=== PATIENT | female | born 1995 | race Caucasian/White ===

== ENCOUNTER 2018-12-27 17:24 | Inpatient (IN) | payer MEDICAID ==
[~2018-12-27] VITALS: Ht 149.9 cm; Wt 78.0 kg
[2018-12-27 18:50] VITALS: BP 135/85; PULSE 85; RESP 16
[2018-12-27] MEDS ORDERED: HYDR50TA15 PO (18:54)
[2018-12-27] MEDS ORDERED: PREN-19 PO (18:54)
[2018-12-27] MEDS ORDERED: ACETAMINOPHEN 325 MG TAB PO PRN (22:00)
[2018-12-27] MEDS ORDERED: AL HYDROX/MG HYDROX/SIMETH 30 ML CUP PO PRN (22:00)
[2018-12-27] MEDS: URSODIOL 300 MG CAP PO SCH (22:49)
[2018-12-27] MEDS: NACL 0.9% 3 ML SYG IV SCH (23:05)
--- NOTE | 2018-12-27 23:11 | TRIAGE ---
OB Triage Datetime Report Generated by CPN: 12/27/2018 23:11 Datetime: 12/27/2018 22:42 Time of Arrival: 12/27/2018 21:30 EGA: 35.4 Arrived By: Ambulatory Arrived From: Home Chief Complaint: c/o itching x 3 wks and numbness in hands Movement: Present Contractions: Denies/Absent Rupture of Membranes: Denies Vaginal Bleeding: None Vaginal Discharge: Denies Recent Sexual Intercouse: Denies Abdominal Trauma: Not Applicable Patient Complaints: Upper Extremity Edema Time Provider Notified: 12/27/2018 19:10 Provider Notified: Dr Cabrera Initial Plan: EFM,CBC,CMP,UA,URINE CULTURE,EFW,BPP,URIC ACID,BILE ACIDS Datetime: 12/27/2018 22:17 Vaginal Exam Membrane Status: Intact
--- NOTE | 2018-12-28 00:04 | HP ---
Date/Time of Note Date/Time of Note DATE: 12/27/18 TIME: 23:34 OB - History Hx of Present Free Text/Dictation 23 y.o primigravida here at 35w4d with c/o generalized itching sensation and numbness of hands for 3weeks. initial BP was 135/85 ,high BP in multiple occasions range 140-160/90-104 LFT sl ightly elevated AST 56 ALT 96 Bile acid has been drawn most likely of which result is pending,she has been on hydroxysine only she also c/o generalized edema with numbness on both hands EFM CAT I tracing no uterine activities spot urine protein neg admit her ofr observation for high blood pressure ,place on her ursordiol for poss cholestasis in the mean time and have perinatalogist see her in am with repeat lab in am. Chief Complaint: whole body itching with generalized edema Estimated Due Date: Jan 27, 2019 : 1 Para: 0 Spontaneous : 0 Therapeutic : 0 Care: Other Ultrasounds: Other Obstetrical Complications: None Medical Complications: None Past Family/Social History * Past Medical, Surgical, Family and Obstetric Histories reviewed from chart. Blood Type: Unknown Rubella: unknown RPR/VDRL: Unknown GBS Status: Unknown HBsAG: Unknown OB Admission Exam Vital Signs Vital Signs Vital Signs Date Temp Pulse Resp B/P (MAP) Pulse Ox O2 O2 Flow FiO2 Time Delivery Rate 12/27/18 98.2 85 16 135/85 Room Air 18:50 (102) Physical Exam HEENT: WNL Heart: Rhythm Normal Lungs: Clear, Equal Abdomen: WNL Extremities: Edema (+/+) Reflexes: Normal Cervical Dilatation: other Effacement: Other Station: Other Membranes: Intact Amniotic Fluid: Unevaluable Heart Rate: 130's Accelerations: Accelerations Present Decelerations: No Decelerations Varibility: Moderate Contractions on Admission: None Last 72 hours Lab Results CBC & BMP 12/27/18 19:56 Liver Function Test 12/27/18 19:56 Alanine Aminotransferase (ALT/SGPT) 96 H Albumin 3.2 L Alkaline Phosphatase 440 H Aspartate Amino Transf (AST/SGOT) 53 H Direct Bilirubin 0.00 Total Protein 6.9 OB Assessment/Plan Other Assessment: A IUP 35w4d R/O cholestasis PIH P admit to antepartum for observation and perinatalogy consultation Rx ursodiol repeat PIH lab 24hr urine collection forprotein and cr cl MICKEY FLORES MD Dec 27, 2018 23:56
[2018-12-28] MEDS: URSODIOL 300 MG CAP PO SCH ×3 (09:28→21:07)
[2018-12-28] MEDS: PRENATAL VITAMIN PO SCH (09:28)
[2018-12-28] MEDS ORDERED: DIPHENHYDRAMINE 50 MG INJ IM PRN ×2 (14:30)
[2018-12-28] MEDS: NACL 0.9% 3 ML SYG IV SCH (16:46)
[2018-12-28] MEDS: DEXAMETHASONE 4 MG/ML 5 ML INJ IM SCH (16:48)
[2018-12-28] MEDS: DIPHENHYDRAMINE 50 MG INJ IV PRN (19:39)
--- NOTE | 2018-12-29 03:38 | CONS ---
DATE OF ADMISSION: 12/27/2018 DATE OF CONSULTATION: 12/28/2018 HISTORY OF PRESENT ILLNESS: The patient is a primigravida at 35 weeks and 5 days, presented with com plaint of itching. She was found to have also elevated blood pressures. Her AST and ALT are elevate d, both less than 100. Creatinine is 0.6. Platelet is normal. A 24-hour urine for protein is pendi ng. She has been experiencing itching for a month, but she had not been placed on Actigall. Current ly, she is placed on Actigall 3 times a day. Primigravida. REVIEW OF SYSTEMS: Except for what is mentioned above is negative. Vital signs currently is 137/82 blood pressure. PHYSICAL EXAMINATION: Deferred. heart tones reassuring. Contractions occasionally. Labs as above. IMPRESSION: Intrauterine at 35 weeks and 5 days with cholestasis, currently on Actigall 3 times a day, also placed on Benadryl p.r.n. for itching. Elevated blood pressures in the normal to moderate range. No symptoms. Liver functions are elevated . It could be secondary to the blood pressure or cholestasis. A 24-hour urine for protein is pending. RECOMMENDATIONS: Dexamethasone as she is less than 36 weeks. Continuous heart tone monitoring. Delivery at 37 weeks unless. She is diagnosed with severe preeclampsia based on blood pressures, 24- hour urine for protein, elevated creatinine or nonreassuring heart tone or GI symptoms, neurolo gic symptoms, respiratory problems and vision. Please do note that nonreassuring heart does not make the severe preeclampsia, but it would req uire delivery. Recheck the liver enzymes again tomorrow if they are more elevated, then I do recommend delivery at 3 6 weeks. NICU consult just in case. In-house management until delivery. Dictated By: SAMIR VALADEZ MD ST/NTS Conf#: [id number] DID#: [id number] CC: ZAHIRA YIN MD;*EndCC*
[2018-12-29] MEDS: DEXAMETHASONE 4 MG/ML 5 ML INJ IM SCH ×2 (05:42→18:37)
[2018-12-29] MEDS: URSODIOL 300 MG CAP PO SCH ×3 (10:40→21:07)
[2018-12-29] MEDS: PRENATAL VITAMIN PO SCH (10:40)
[2018-12-30] MEDS: NACL 0.9% 3 ML SYG IV SCH ×3 (06:46→20:16)
[2018-12-30] MEDS: DEXAMETHASONE 4 MG/ML 5 ML INJ IM SCH (06:48)
[2018-12-30] MEDS: PRENATAL VITAMIN PO SCH (09:15)
--- NOTE | 2018-12-30 09:28 | PREOPHP ---
DATE OF ADMISSION: 12/27/2018 HISTORY OF PRESENT ILLNESS: This is a 23-year-old lady, 1. Her EDC by early ultrasound is 0 01/27/2019, that makes her 35 and 4/7 weeks, admitted to labor and delivery for observation. The jimmy ent had been having itching for the last many days and getting worse up to the time of admission. Agnes allison had gone to [facility] for this problem as well. She came today on 12/27/2018 for observa tion. PAST PERSONAL HISTORY: No history of TB, asthma. ALLERGIES: NO ALLERGIES. SOCIAL HISTORY: Patient does not smoke. She does not drink. MEDICATIONS: She does not take any drugs except her iron and vitamins. She was given Actigall 300 m g p.o. 3 times a day before. GYNECOLOGIC HISTORY: She had menarche at the age of 11, every 28 days interval, 3 to 4 days duration , and moderate in amount. FAMILY HISTORY: Noncontributory. She is 1, para 0. REVIEW OF SYSTEMS: CARDIOVASCULAR: No chest pains. RESPIRATORY: No cough. GASTROINTESTINAL: No diarrhea, no vomiting. GENITOURINARY: No dysuria. PHYSICAL EXAMINATION: GENERAL: Reveals a conscious, coherent lady and in no acute distress. VITAL SIGNS: Her blood pressure 120/80, pulse rate 80 per minute, respirations 16 per minute. BREASTS, HEART AND LUNGS: Within normal limits. ABDOMEN: Soft, no tenderness noted. Fundic height 34 cm. heart tones 140 per minute. PELVIC: On admission revealed the cervix to be closed. EXTREMITIES: No pedal edema. Deep tendon reflexes were normal. ADMITTING DIAGNOSES: A 35 and 4/7 weeks intrauterine , rule out cholestasis of . Patient had an OB ultrasound and abdominal ultrasound. She had all the liver function tests done CBC , CMP. The plans were explained to the patient. When I was informed by the nurse about admission, t he patient was admitted in the afternoon on 12/27/2018. She was admitted under another doctor, Dr. Hyun benavidez, and I was informed about this patient at 4 o'clock in the afternoon that this patient is adm itted and she is my patient. So she was transferred to my care. The patient was planned to be obser tawana in the hospital and to be continued on Actigall and Benadryl if needed. The plans were explained to the patient. She understood everything totally. The risks, benefits, and alternatives were disc ussed with her as well. Dictated By: ZAHIRA YIN MD NS/JAVIER Conf#: [id number] DID#: [id number] CC: ZAHIRA YIN MD;*EndCC*
--- NOTE | 2018-12-30 09:33 | PN ---
DATE: 12/28/2018 TIME: 1:00 p.m. SUBJECTIVE: The patient still feels itching, but less with the Benadryl and Dr. Russell was consulted about this patient. She had all the lab tests reviewed and that she had elevated SGOT and SGPT, but the platelets were normal. OBJECTIVE: VITAL SIGNS: She is afebrile. Vital signs stable. No vaginal bleeding noted. EXTREMITIES: There is no calf tenderness. PLAN: NURA was 10. She was planned to be observed and have a repeat CBC and CMP the following day. The plans were explained to the patient. She understood everything totally. Dictated By: AZHIRA YIN MD NS/NTS Conf#: [id number] DID#: [id number] CC: ZAHIRA YIN MD;*EndCC* MTDD
--- NOTE | 2018-12-30 09:38 | PN ---
DATE: 12/29/2018 TIME: 8:30 p.m. SUBJECTIVE: The patient feels good. She still with itching, but a lot better. No vaginal bleeding, no discharge. OBJECTIVE: VITAL SIGNS: She is afebrile. Vital signs stable. ABDOMEN: Soft, no tenderness noted. I did a pelvic exam and the pelvic exam revealed the cervix to be closed. No watery discharge, no bleeding noted. EXTREMITIES: No calf tenderness. ASSESSMENT: A 35 and 6/7 weeks intrauterine with possible cholestasis of . The p atient will be kept until tomorrow. She will be 36 weeks tomorrow and then she will have a repeat CB C, CMP, plus the cervical length and NURA tomorrow. This is the plans that were explained to the jimmy ent and she understood everything totally. Dictated By: ZAHIRA YIN MD NS/NTS Conf#: [id number] DID#: [id number] CC: ZAHIRA YIN MD;*EndCC*
[2018-12-30] MEDS: URSODIOL 300 MG CAP PO SCH ×3 (11:00→21:08)
[2018-12-31] MEDS: NACL 0.9% 3 ML SYG IV SCH ×3 (08:11→16:55)
[2018-12-31] MEDS: PRENATAL VITAMIN PO SCH (10:10)
[2018-12-31] MEDS: URSODIOL 300 MG CAP PO SCH ×3 (10:10→21:28)
--- NOTE | 2018-12-31 22:55 | PN ---
DATE: 12/30/2018 SUBJECTIVE: The patient feels good, still with itching but less, no contractions. OBJECTIVE VITAL SIGNS: She is afebrile. Vital signs stable. ABDOMEN: Soft, no tenderness noted. heart tones normal. No vaginal bleeding noted. No water y discharge. ASSESSMENT: A 35 and 5/7 weeks intrauterine with cholestasis of . PLAN: Repeat her CMP and CBC tomorrow and to reconsult Dr. Russell tomorrow, Monday. Dictated By: ZAHIRA ESCOBAR/NTS Conf#: [id number] DID#: [id number]
[2018-12-31] MEDS: DIPHENHYDRAMINE 50 MG INJ IV PRN (23:06)
--- NOTE | 2018-12-31 23:06 | PN ---
DATE: 12/31/2018 TIME: 1:00 P.M. SUBJECTIVE: The patient is not having any contractions and less itching. CBC is stable. hear t tones are normal and that her liver function tests are better today comparing it from yesterday. Latanya Russell, her reimbursement coordinator, will be reconsulted. OBJECTIVE: VITAL SIGNS: She is afebrile. Vital signs stable. ABDOMEN: Soft. heart tones normal. No vaginal bleeding noted. EXTREMITIES: No calf tenderness. ASSESSMENT: Thirty-six weeks intrauterine with cholestasis of . PLAN: Repeat her liver function tests tomorrow. Dictated By: ZAHIRA YIN MD NS/NTS Conf#: [id number] DID#: [id number] CC: ZAHIRA YIN MD;*EndCC*
[2019-01-01] MEDS: URSODIOL 300 MG CAP PO SCH (09:47)
[2019-01-01] MEDS: PRENATAL VITAMIN PO SCH (09:49)
[2019-01-01] MEDS ORDERED: OXYTOCIN 30 UNITS/LR 500 ML IV SCH ×6 (10:00→16:22)
[2019-01-01] MEDS ORDERED: LIDOCAINE 1% (MPF) 30 ML INJ INJ PRN (10:00)
[2019-01-01] MEDS ORDERED: MISOPROSTOL 50 MCG CAPSULE VAG ONE (10:00)
[2019-01-01] MEDS ORDERED: CARBOPROST 250 MCG INJ IM PRN ×2 (10:00→16:30)
[2019-01-01] MEDS ORDERED: BUTORPHANOL 2 MG INJ IV PRN ×2 (10:00→12:00)
[2019-01-01] MEDS ORDERED: OXYTOCIN 30 UNITS/LR 500 ML IV PRN ×2 (10:00→16:30)
[2019-01-01] MEDS ORDERED: METHYLERGONOVINE 0.2 MG INJ IM PRN ×2 (10:00→16:30)
[2019-01-01] MEDS ORDERED: MISOPROSTOL 200 MCG TAB PR PRN ×2 (10:00→16:30)
[2019-01-01] MEDS ORDERED: AMPICILLIN 2 GM/NS (PMX) 100 ML IVPB ONE (10:30)
[2019-01-01] MEDS: LACTATED RINGER'S 1,000 ML IV SCH ×2 (10:44→13:27)
--- NOTE | 2019-01-01 12:59 | PREAC ---
Date/Time of Note Date/Time of Note DATE: 01/01/19 TIME: 12:56 Anesthesia Eval and Record Evaluation Time Pre-Procedure Interview DATE: 01/01/19 TIME: 12:56 Age 23 Sex female NPO: Other breakfast at 8 Preoperative diagnosis FHR deceleration Planned procedure C section Past Medical History Past Medical History: Includes : : (1), Gestational age: (35) Surgery & Anesthesia Issues No known issue Meds Anticoagulation: No Beta Andrea within 24 hr: No Reason Beta Andrea not given: Pt. not on B-Andrea Reported Medications Hydroxyzine Hcl* (Hydroxyzine Hcl*) 50 Mg Tablet, 50 MG PO DAILY, #40 TAB 12/27/18 Vit #76/Iron,Carb/FA (Prenatabs Rx Tablet) 1 Each Tablet, 1 EACH PO DAILY, TAB 12/27/18 Current Medications Ursodiol (Actigall) 300 mg TID PO Last administered on 01/01/19at 09:47; Admin Dose 300 MG; Start 12/27/18 at 22:00 Lactated Ringer's 1,000 ml @ 125 mls/hr Q8H IV Last administered on 01/01/19at 10:44; Admin Dose 125 MLS/HR; Start 01/01/19 at 09:50 Lidocaine (Xylocaine 1% (Mpf)) 30 ml ONCE PRN INJ .EPISIOTOMY; Start 01/01/19 at 10:00 Oxytocin/Lactated Ringer's 500 ml @ 500 mls/hr ONCE POST IV ; Start 01/01/19 at 10:00 Oxytocin/Lactated Ringer's 500 ml @ 125 mls/hr POST IV ; Start 01/01/19 at 10:00 Oxytocin/Lactated Ringer's 500 ml @ 0 mls/hr ONCE PRN IV .VAGINAL BLEEDING; Start 01/01/19 at 10:00 Methylergonovine Maleate (Methergine) 0.2 mg ONCE PRN IM .VAGINAL BLEEDING; Start 01/01/19 at 10:00 Carboprost Tromethamine (Hemabate) 250 mcg ONCE PRN IM .VAGINAL BLEEDING; Start 01/01/19 at 10:00 Misoprostol (Cytotec) 1,000 mcg ONCE PRN [place] .VAGINAL BLEEDING; Start 01/01/19 at 10:00 Oxytocin/Lactated Ringer's 500 ml @ 0 mls/hr FOR INDUCTION IV Last administered on 01/01/19at 10:46; Admin Dose 1 MLS/HR; Start 01/01/19 at 10:00 Ampicillin 50 ml @ 100 mls/hr Q4 IVPB ; Start 01/01/19 at 13:00 Oxytocin/Lactated Ringer's 500 ml @ 500 mls/hr ONCE POST IV ; Start 01/01/19 at 10:30 Oxytocin/Lactated Ringer's 500 ml @ 125 mls/hr POST IV ; Start 01/01/19 at 10:30 Oxytocin/Lactated Ringer's 500 ml @ 0 mls/hr FOR AUGMENTATION IV ; Start 01/01/19 at 10:30 Butorphanol Tartrate (Stadol) 2 mg Q4H PRN IV PAIN Last administered on 01/01/19at 12:04; Admin Dose 2 MG; Start 01/01/19 at 12:00 Meds reviewed: Yes Allergies Coded Allergies: almond (Verified Allergy, Severe, SOB, 12/27/18) Allergies Reviewed: Yes Labs/Studies Labs Reviewed: Reviewed by anesthesiologist Result Diagram: 01/01/19 1209 01/01/19 0515 Laboratory Tests 01/01/19 05:15 01/01/19 12:09 Blood Bank Test 01/01/19 12:09 Blood Type O POSITIVE Rh Immune Globulin Candidate NO test: Positive Studies: ECG (n/a), CXR (n/a) Pre-procedure Exam Airway: Adequate mouth opening Mallampati: Mallampati I Teeth: Normal Lung: Normal Heart: Normal ASA Physical Status ASA physical status: 2 Emergency: None Planned Anesthetic Neuraxial: Spinal Planned Pain Management Sub-arachniod narcotics Pre-operative Attestations Prior to commencing anesthesia and surgery, the patient was re-evaluated, there was verification of: *The patient's identity *The results of appropriate recent lab work and preoperative vital signs *The above evaluation not changing prior to induction *Anesthetic plan, risk benefits, alternative and complications discussed with patient/family; questions answered; patient/family understands, accepts and wishes to proceed. DAVID NG MD Jan 01, 2019 12:59
[2019-01-01] MEDS ORDERED: CEFAZOLIN 2 GM/50 ML (PMX) 50 ML IVPB SCH (13:00)
[2019-01-01] MEDS: AMPICILLIN 1 GM/NS (PMX) 50 ML IVPB SCH ×3 (13:27→21:00)
--- NOTE | 2019-01-01 13:47 | PREAC ---
Date/Time of Note Date/Time of Note DATE: 01/01/19 TIME: 13:46 Anesthesia Eval and Record Evaluation Time Pre-Procedure Interview DATE: 01/01/19 TIME: 13:46 Age 23 Sex female NPO: 4 hrs Preoperative diagnosis labor pain Planned procedure epidural Past Medical History Past Medical History: Includes Cardio: Other (PIH) : : (1), Gestational age: (36) Surgery & Anesthesia Issues No known issue Meds Anticoagulation: No Beta Andrea within 24 hr: No Reason Beta Andrea not given: Pt. not on B-Andrea Reported Medications Hydroxyzine Hcl* (Hydroxyzine Hcl*) 50 Mg Tablet, 50 MG PO DAILY, #40 TAB 12/27/18 Vit #76/Iron,Carb/FA (Prenatabs Rx Tablet) 1 Each Tablet, 1 EACH PO DAILY, TAB 12/27/18 Current Medications Ursodiol (Actigall) 300 mg TID PO Last administered on 01/01/19at 09:47; Admin Dose 300 MG; Start 12/27/18 at 22:00 Lactated Ringer's 1,000 ml @ 125 mls/hr Q8H IV Last administered on 01/01/19at 13:27; Admin Dose 125 MLS/HR; Start 01/01/19 at 09:50 Lidocaine (Xylocaine 1% (Mpf)) 30 ml ONCE PRN INJ .EPISIOTOMY; Start 01/01/19 at 10:00 Oxytocin/Lactated Ringer's 500 ml @ 500 mls/hr ONCE POST IV ; Start 01/01/19 at 10:00 Oxytocin/Lactated Ringer's 500 ml @ 125 mls/hr POST IV ; Start 01/01/19 at 10:00 Oxytocin/Lactated Ringer's 500 ml @ 0 mls/hr ONCE PRN IV .VAGINAL BLEEDING; Start 01/01/19 at 10:00 Methylergonovine Maleate (Methergine) 0.2 mg ONCE PRN IM .VAGINAL BLEEDING; Start 01/01/19 at 10:00 Carboprost Tromethamine (Hemabate) 250 mcg ONCE PRN IM .VAGINAL BLEEDING; Start 01/01/19 at 10:00 Misoprostol (Cytotec) 1,000 mcg ONCE PRN [place] .VAGINAL BLEEDING; Start 01/01/19 at 10:00 Oxytocin/Lactated Ringer's 500 ml @ 0 mls/hr FOR INDUCTION IV Last administered on 01/01/19at 10:46; Admin Dose 1 MLS/HR; Start 01/01/19 at 10:00 Ampicillin 50 ml @ 100 mls/hr Q4 IVPB Last administered on 01/01/19at 13:27; Admin Dose 100 MLS/HR; Start 01/01/19 at 13:00 Oxytocin/Lactated Ringer's 500 ml @ 500 mls/hr ONCE POST IV ; Start 01/01/19 at 10:30 Oxytocin/Lactated Ringer's 500 ml @ 125 mls/hr POST IV ; Start 01/01/19 at 10:30 Oxytocin/Lactated Ringer's 500 ml @ 0 mls/hr FOR AUGMENTATION IV ; Start 01/01/19 at 10:30 Butorphanol Tartrate (Stadol) 2 mg Q4H PRN IV PAIN Last administered on 9at 12:04; Admin Dose 2 MG; Start 01/01/19 at 12:00 Cefazolin Sodium/ Dextrose 50 ml @ 100 mls/hr ONCE IVPB ; Start 01/01/19 at 13:00 Meds reviewed: Yes Allergies Coded Allergies: almond (Verified Allergy, Severe, SOB, 12/27/18) Allergies Reviewed: Yes Labs/Studies Labs Reviewed: Reviewed by anesthesiologist Result Diagram: 01/01/19 1209 01/01/19 0515 Laboratory Tests 01/01/19 05:15 01/01/19 12:09 Blood Bank Test 01/01/19 12:09 Antibody Screen NEGATIVE Blood Type O POSITIVE Rh Immune Globulin Candidate NO test: Positive Studies: ECG (n/a), CXR (n/a) Pre-procedure Exam Airway: Adequate mouth opening Mallampati: Mallampati I Teeth: Normal Lung: Normal Heart: Normal ASA Physical Status ASA physical status: 2 Emergency: None Planned Anesthetic Neuraxial: Epidural Pre-operative Attestations Prior to commencing anesthesia and surgery, the patient was re-evaluated, there was verification of: *The patient's identity *The results of appropriate recent lab work and preoperative vital signs *The above evaluation not changing prior to induction *Anesthetic plan, risk benefits, alternative and complications discussed with patient/family; questions answered; patient/family understands, accepts and wishes to proceed. DAVID NG MD Jan 01, 2019 13:47
[2019-01-01] MEDS ORDERED: FENTAnyl 2MCG/ML-ROPIV 0.2% 100 ML ONE (14:03)
[2019-01-01] MEDS: OXYTOCIN 30 UNITS/LR 500 ML IV SCH ×2 (16:06→16:22)
[2019-01-01] MEDS ORDERED: LACTATED RINGER'S 1,000 ML IV* SCH (16:22)
--- NOTE | 2019-01-01 16:22 | OPPN ---
Date/Time of Note Date/Time of Note DATE: 01/01/19 TIME: 16:19 Operative Report Planned Procedure Procedure date Jan 01, 2019 Procedure(s) Performed by see signature line Nature Photographer: A 2nd Nature Photographer none Pre-procedure diagnosis 36 WEEKS 1DAY LABOR CHOLESTASIS OF [id number] Anesthesia Type: [id number] general Post-Procedure Post-procedure diagnosis 36 WEEKS 1DAY LABOR CHOLESTASIS OF MIDLINE EPISIOTOMY Findings Live Baby GIRL, Apgars 9and 9, [id number] INCHES LONG Estimated Blood Loss: 200 - 300 mls Specimen(s) none Grafts/Implant(s) none Complication(s) none ZAHIRA YIN MD Jan 01, 2019 16:22
[2019-01-01] MEDS ORDERED: ZOLPIDEM 5 MG TAB PO PRN (16:30)
[2019-01-01] MEDS ORDERED: HYDROCODONE/APAP (5/325) TAB PO PRN ×2 (16:30)
[2019-01-01] MEDS ORDERED: WITCH HAZEL/GLYCERIN PAD PR PRN (16:30)
[2019-01-01] MEDS ORDERED: ONDANSETRON 4 MG INJ IV PRN (16:30)
[2019-01-01] MEDS ORDERED: NA PHOSPHATE/BIPHOS 133 ML ENEMA PR PRN (16:30)
[2019-01-01] MEDS ORDERED: BENZOCAINE 20% 56 ML SPRAY TOP PRN (16:30)
[2019-01-01] MEDS ORDERED: MAGNESIUM HYDROXIDE 30ML CUP PO PRN (16:30)
[2019-01-01] MEDS ORDERED: DIPHENHYDRAMINE 25 MG CAP PO PRN (16:30)
[2019-01-01] MEDS ORDERED: LANOLIN HPA 1 PKT TOP PRN (16:30)
[2019-01-01] MEDS ORDERED: METHYLERGONOVINE 0.2 MG TAB PO PRN (16:30)
[2019-01-01] MEDS ORDERED: MAGNESIUM SULFATE 4 GM/100 ML 100 ML ONE (17:24)
[2019-01-01] MEDS ORDERED: MAGNESIUM SULFATE 4 GM/100 ML 100 ML IV ONE (17:30)
[2019-01-01 18:10] VITALS: BP 139/83; PULSE 87; RESP 18
[2019-01-01] MEDS: MAGNESIUM SULFATE 20 GM/500 ML 500 ML IV SCH (18:13)
[2019-01-01 20:00] VITALS: BP 147/82; PULSE 84; RESP 19
--- NOTE | 2019-01-01 20:49 | PAC ---
Date/Time of Note Date/Time of Note DATE: 01/01/19 TIME: 20:49 Post-Anesthesia Notes Post-Anesthesia Note Last documented vital signs Vital Signs Date Temp Pulse Resp B/P (MAP) Pulse Ox O2 O2 Flow FiO2 Time Delivery Rate 01/01/19 98.9 87 18 139/83 97 Room Air 18:10 (101) Activity: WNL Respiratory function: WNL Cardiovascular function: WNL Mental status: Baseline Pain reasonably controlled: Yes Hydration appropriate: Yes Nausea/Vomiting absent: No DAVID NG MD Jan 01, 2019 20:49
[2019-01-01] MEDS: SENNA/DOCUSATE NA (8.6MG/50MG) TAB PO SCH (20:51)
[2019-01-01 21:00] VITALS: BP 140/82; PULSE 75; RESP 18
[2019-01-01 22:00] VITALS: BP 133/80; PULSE 91; RESP 18
[2019-01-01 23:00] VITALS: BP 133/80; PULSE 91; RESP 18
[2019-01-02] VITALS (11 sets, daily range): BP systolic 104–133; BP diastolic 57–81; PULSE 73–101; RESP 17–20
[2019-01-02] MEDS: AMPICILLIN 1 GM/NS (PMX) 50 ML IVPB SCH ×2 (01:00→05:00)
[2019-01-02] MEDS: MAGNESIUM SULFATE 20 GM/500 ML 500 ML IV SCH (03:51)
[2019-01-02] MEDS: IBUPROFEN 800 MG TAB PO PRN ×3 (04:56→19:42)
[2019-01-02] MEDS: LACTATED RINGER'S 1,000 ML IV SCH ×3 (04:57→20:23)
[2019-01-02] MEDS: SENNA/DOCUSATE NA (8.6MG/50MG) TAB PO SCH ×2 (10:08→21:29)
--- NOTE | 2019-01-02 15:54 | PN ---
Date/Time of Note Date/Time of Note DATE: 01/02/19 TIME: 15:51 Assessment/Plan VTE Prophylaxis Risk score (from Ns)>0 risk: 1 SCD applied (from [facility] No SCD contraindicated: low risk/ambulating Pharmacological prophylaxis: NA/contraindicated Pharm contraindication: low risk/ambulating Lines/Catheters IV Catheter Type (from [facility]): Sal[place] Assessment/Plan Assessment/Plan POST DAY 1 HOME TOMORROW RETURN TO CLINIC IN 2 WEEKS CONTINUE WITH VITAMINS OD AND FERROUS SULFATE PO TID DIET ADVISED COUNSELED INSTRUCTED CALL OFFICE IF THERE IS ANY PROBLEMS OR CONCERN Result Diagram: 01/02/19 0606 01/01/19 0515 Results 24hrs Laboratory Tests Test 01/01/19 16:22 01/01/19 16:23 01/02/19 00:28 01/02/19 06:06 Blood Gas CBA CBV Specimen Source Arterial Blood 01/01/2019 4:30: 01/01/2019 4:27: Date Drawn 13 PM 01 PM Arterial Blood CORD CORD Gas Puncture Site Bruce Test N/A N/A Cord Blood 0.5 1.0 Carboxyhemoglobi n Cord Arterial 7.247 Blood pH Cord Arterial 55.5 H Blood PCO2 Cord Arterial 22.3 Blood PO2 Cord Arterial 23.6 Blood HCO3 Cord Arterial -4.8 Blood Base Excess POC Cord 48.9 Arterial Blood O2 Sat Cord Arterial 19.4 Blood Hemoglobin Cord Arterial 48.1 Blood Oxyhemoglo bin Cord Arterial 1.1 Blood Methemoglo bin Blood Gas A-a O2 61.0 Differential Blood Gas 37.0 37.0 Temperature Blood Gas ROOM AIR ROOM AIR Modality FiO2 21.0 21.0 Blood Gas Abril SARAH RN Critical Value Read Back Blood Gas NB NB Notified Whom Blood Gas 01/01/2019 4:56: 01/01/2019 4:55: Notified Time 22 PM 44 PM Cord Venous 7.303 Blood pH Cord Venous 43.0 Blood PCO2 Cord Venous 31.1 Blood PO2 Cord Venous 20.8 L Blood HCO3 Cord Venous -5.4 Blood Base Excess POC Cord Venous 77.6 Blood Oxygen Sat Cord Venous 18.8 Blood Hemoglobin Cord Venous 76.0 Blood Oxyhemoglo bin Cord Venous 1.1 Blood Methemoglo bin Magnesium Level 5.3 *H 4.7 H White Blood 15.7 #H Count Red Blood Count 3.83 L Hemoglobin 10.8 L Hematocrit 31.5 L Mean Corpuscular 82.2 Volume Mean Corpuscular 28.2 L Hemoglobin Mean Corpuscular 34.3 Hemoglobin Chari nt Red Cell 14.5 Distribution Width Platelet Count 292 # Mean Platelet 9.3 Volume Immature 0.400 Granulocytes % Neutrophils % 82.9 H Lymphocytes % 11.0 L Monocytes % 5.2 Eosinophils % 0.3 Basophils % 0.2 Nucleated Red 0.0 Blood Cells % Immature 0.070 H Granulocytes # Neutrophils # 13.0 H Lymphocytes # 1.7 Monocytes # 0.8 Eosinophils # 0.1 Basophils # 0.0 Nucleated Red 0.0 Blood Cells # Subjective 24 Hr Interval Summary Free Text/Dictation FEELS GOOD, GOOD URINE OUTPUT, GOOD BOWEL MOVEMENT Exam/Review of Systems Exam Vitals Vital Signs Date Temp Pulse Resp B/P (MAP) Pulse Ox O2 O2 Flow FiO2 Time Delivery Rate 01/02/19 98 19 118/72 Room Air 12:00 (87) 01/02/19 98.3 08:00 01/01/19 98 20:00 Intake and Output 01/01/19 01/01/19 01/02/19 1515:00 23:00 07:00 IntakeIntake Total 627 ml 1205 ml 1352 ml OutputOutput Total 2825 ml 1250 ml BalanceBalance 627 ml -1620 ml 102 ml Exam VITAL SIGNS STABLE: YES AFEBRILE: YES BREAST NOT ENGORGED, NON-TENDER, NO APPRECIABLE MASS: YES LUNGS CLEAR, NO RALES, WHEEZES, RHONCHI: YES SINUS RHYTHM WITHOUT MURMUR: YES ABDOMEN: NON-TENDER FUNDUS: BELOW UMBILICUS BOWEL SOUNDS: PRESENT UTERUS: FIRM EPISIOTOMY HEALING WELL: YES LOCHIA: LIGHT DEEP TENDON REFLEXES: 0 EXTREMITIES: NO CALF TENDERNESS EDEMA SCALE: NONE Results Results 24hrs Laboratory Tests Test 01/01/19 16:22 01/01/19 16:23 01/02/19 00:28 01/02/19 06:06 Blood Gas CBA CBV Specimen Source Arterial Blood 01/01/2019 4:30: 01/01/2019 4:27: Date Drawn 13 PM 01 PM Arterial Blood CORD CORD Gas Puncture Site Bruce Test N/A N/A Cord Blood 0.5 1.0 Carboxyhemoglobi n Cord Arterial 7.247 Blood pH Cord Arterial 55.5 H Blood PCO2 Cord Arterial 22.3 Blood PO2 Cord Arterial 23.6 Blood HCO3 Cord Arterial -4.8 Blood Base Excess POC Cord 48.9 Arterial Blood O2 Sat Cord Arterial 19.4 Blood Hemoglobin Cord Arterial 48.1 Blood Oxyhemoglo bin Cord Arterial 1.1 Blood Methemoglo bin Blood Gas A-a O2 61.0 Differential Blood Gas 37.0 37.0 Temperature Blood Gas ROOM AIR ROOM AIR Modality FiO2 21.0 21.0 Blood Gas Abril SARAH RN Critical Value Read Back Blood Gas SUSAN NB Notified Whom Blood Gas 01/01/2019 4:56: 01/01/2019 4:55: Notified Time 22 PM 44 PM Cord Venous 7.303 Blood pH Cord Venous 43.0 Blood PCO2 Cord Venous 31.1 Blood PO2 Cord Venous 20.8 L Blood HCO3 Cord Venous -5.4 Blood Base Excess POC Cord Venous 77.6 Blood Oxygen Sat Cord Venous 18.8 Blood Hemoglobin Cord Venous 76.0 Blood Oxyhemoglo bin Cord Venous 1.1 Blood Methemoglo bin Magnesium Level 5.3 *H 4.7 H White Blood 15.7 #H Count Red Blood Count 3.83 L Hemoglobin 10.8 L Hematocrit 31.5 L Mean Corpuscular 82.2 Volume Mean Corpuscular 28.2 L Hemoglobin Mean Corpuscular 34.3 Hemoglobin Chari nt Red Cell 14.5 Distribution Width Platelet Count 292 # Mean Platelet 9.3 Volume Immature 0.400 Granulocytes % Neutrophils % 82.9 H Lymphocytes % 11.0 L Monocytes % 5.2 Eosinophils % 0.3 Basophils % 0.2 Nucleated Red 0.0 Blood Cells % Immature 0.070 H Granulocytes # Neutrophils # 13.0 H Lymphocytes # 1.7 Monocytes # 0.8 Eosinophils # 0.1 Basophils # 0.0 Nucleated Red 0.0 Blood Cells # Medications Medication Current Medications Lactated Ringer's 1,000 ml @ 125 mls/hr Q8H IV Last administered on 01/02/19at 04:57; Admin Dose 125 MLS/HR; Start 01/01/19 at 09:50 Lidocaine (Xylocaine 1% (Mpf)) 30 ml ONCE PRN INJ .EPISIOTOMY; Start 01/01/19 at 10:00 Oxytocin/Lactated Ringer's 500 ml @ 500 mls/hr ONCE POST IV Last administered on 01/01/19at 16:06; Admin Dose 500 MLS/HR; Start 01/01/19 at 10:00 Oxytocin/Lactated Ringer's 500 ml @ 125 mls/hr POST IV ; Start 01/01/19 at 10:00 Oxytocin/Lactated Ringer's 500 ml @ 0 mls/hr ONCE PRN IV .VAGINAL BLEEDING; Start 01/01/19 at 10:00 Methylergonovine Maleate (Methergine) 0.2 mg ONCE PRN IM .VAGINAL BLEEDING; Start 01/01/19 at 10:00 Carboprost Tromethamine (Hemabate) 250 mcg ONCE PRN IM .VAGINAL BLEEDING; Start 01/01/19 at 10:00 Misoprostol (Cytotec) 1,000 mcg ONCE PRN VA .VAGINAL BLEEDING; Start 01/01/19 at 10:00 Oxytocin/Lactated Ringer's 500 ml @ 0 mls/hr FOR INDUCTION IV Last administered on 01/01/19at 10:46; Admin Dose 1 MLS/HR; Start 01/01/19 at 10:00 Oxytocin/Lactated Ringer's 500 ml @ 500 mls/hr ONCE POST IV ; Start 01/01/19 at 10:30 Oxytocin/Lactated Ringer's 500 ml @ 125 mls/hr POST IV ; Start 01/01/19 at 10:30 Oxytocin/Lactated Ringer's 500 ml @ 0 mls/hr FOR AUGMENTATION IV ; Start 01/01/19 at 10:30 Butorphanol Tartrate (Stadol) 2 mg Q4H PRN IV PAIN Last administered on 01/01/19at 12:04; Admin Dose 2 MG; Start 01/01/19 at 12:00 Cefazolin Sodium/ Dextrose 50 ml @ 100 mls/hr ONCE IVPB ; Start 01/01/19 at 13:00 Lactated Ringer's 1,000 ml @ 125 mls/hr Q8H IV* ; Start 01/01/19 at 16:22; Status Hold Methylergonovine Maleate (Methergine) 0.2 mg Q6H PRN PO .VAGINAL BLEED; Start 01/01/19 at 16:30 Ibuprofen (Motrin) 800 mg Q8 PRN PO MILD PAIN LEVEL 1-3 Last administered on 01/02/19at 12:00; Admin Dose 800 MG; Start 01/01/19 at 16:30 Acetaminophen/ Hydrocodone Bitart ([place] (5/325)) 1 tab Q4H PRN PO MODERATE PAIN LEVEL 4-6; Start 01/01/19 at 16:30 Acetaminophen/ Hydrocodone Bitart ([place] (5/325)) 2 tab Q4H PRN PO SEVERE PAIN LEVEL 7-10; Start 01/01/19 at 16:30 Ondansetron HCl (Zofran Inj) 4 mg Q6H PRN IV NAUSEA/VOMITING; Start 01/01/19 at 16:30 Diphenhydramine HCl (Benadryl) 25 mg Q6H PRN PO .PRUTITUS; Start 01/01/19 at 16:30 Zolpidem Tartrate (Ambien) 5 mg QHS PRN PO .INSOMNIA; Start 01/01/19 at 16:30 Senna/Docusate Sodium (Senokot-S) 1 tab BID PO Last administered on 01/02/19at 10:08; Admin Dose 1 TAB; Start 01/01/19 at 21:00 Magnesium Hydroxide (Milk Of Mag) 30 ml Q12H PRN PO .CONSTIPATION; Start 01/01/19 at 16:30 Sodium Biphosphate/ Sodium Phosphate (Fleet Enema) 133 ml DAILY PRN VA .CONSTIPATION; Start 01/01/19 at 16:30 Witch Nell/ Glycerin (Tucks Pads) 1 pad BEDSIDE MEDICATION PRN VA .HEMORRHOID/EPISIOTOMY PAIN Last administered on 01/01/19at 20:52; Admin Dose 1 PAD; Start 01/01/19 at 16:30 Benzocaine (Dermoplast [place]) 1 spray BEDSIDE MEDICATION PRN TOP .HEMMORHOID/EPISIOTOMY PAIN Last administered on 01/01/19at 20:52; Admin Dose 1 SPRAY; Start 01/01/19 at 16:30 Lanolin (Lanolin Hpa) 1 applic BEDSIDE MEDICATION PRN TOP .NIPPLES Last administered on 01/01/19at 20:51; Admin Dose 1 APPLIC; Start 01/01/19 at 16:30 Measles/Mumps/ Rubella Vaccine Live (Mmr Ii Vaccine) 0.5 ml ONCE ONCE SC* ; Start 01/03/19 at 09:00; Stop 01/03/19 at 09:01 Diphtheria/ Tetanus/Acell Pertussis (Adacel) 0.5 ml ONCE ONCE IM* ; Start at 09:00; Stop 01/03/19 at 09:01 Varicella Virus Vaccine Live (Varivax Vaccine With Diluent) 1,350 unit ONCE ONCE SC* ; Start 01/03/19 at 09:00; Stop 01/03/19 at 09:01 Oxytocin/Lactated Ringer's 500 ml @ 0 mls/hr ONCE PRN IV .VAGINAL BLEEDING; Start 01/01/19 at 16:30 Methylergonovine Maleate (Methergine) 0.2 mg ONCE PRN IM .VAGINAL BLEEDING; Start 01/01/19 at 16:30 Carboprost Tromethamine (Hemabate) 250 mcg ONCE PRN IM .VAGINAL BLEEDING; Start 01/01/19 at 16:30 Misoprostol (Cytotec) 1,000 mcg ONCE PRN VA .VAGINAL BLEEDING; Start 01/01/19 at 16:30 ZAHRIA YIN MD Jan 02, 2019 15:54
[2019-01-03] MEDS: LACTATED RINGER'S 1,000 ML IV SCH ×2 (01:50→09:50)
[2019-01-03 03:40] VITALS: BP 113/56; PULSE 64; RESP 19
[2019-01-03 07:45] VITALS: BP 119/72; PULSE 68; RESP 19
[2019-01-03] MEDS: IBUPROFEN 800 MG TAB PO PRN (07:55)
[2019-01-03] MEDS ORDERED: MEASLES,MUMPS,RUBELLA VACCINE INJ SC* ONE (09:00)
[2019-01-03] MEDS ORDERED: DIPHTH/TET/ACEL PERTUSS (ADULT) 0.5 ML VIAL IM* ONE (09:00)
[2019-01-03] MEDS ORDERED: VARICELLA VACCINE LIVE/PF 1,350 UNIT/0.5 ML ML SC* ONE (09:00)
[2019-01-03] MEDS: SENNA/DOCUSATE NA (8.6MG/50MG) TAB PO SCH (09:55)
[2019-01-03 16:00] VITALS: BP 124/88; PULSE 94; RESP 18
--- NOTE | 2019-01-03 18:23 | OPR ---
DATE OF OPERATION: 01/01/2019 This is a 23-year-old lady admitted for cholestasis of . HISTORY OF PRESENT ILLNESS: See dictated history and physical. PHYSICAL EXAMINATION: See dictated history and physical. ADMITTING DIAGNOSIS: A 35 and 4/7 weeks intrauterine with cholestasis of and pre term labor. Patient received betamethasone and was observed in the hospital as the liver function te sts were noted to be getting elevated, but then over the last 2 days, they were getting better. Dr. Russell, our perinatologist, was consulted on this patient. On 01/01/2018, the patient started to have contractions with spontaneous bag of water at approximately 7 a.m. on 01/01/2019. She was reevaluat ed at 9:20 a.m. She was 1 to 2 cm dilated, 100% effaced and station 0. Nitrazine test was positive. scalp electrode and IUPC was inserted. She was given Pitocin augmentation and she progressed well. She received Stadol followed by an epidural. At 2:05 p.m. on 01/01/2019, she was 7 cm dilate d and 100% effaced, and she was progressing well. She had a normal spontaneous vaginal delivery on 0 01/01/2019 at 1554 p.m. with Apgars of 9 and 9, weight 6 pounds 9 ounces, 2990 grams, 18 inches long, over midline episiotomy. The placenta was delivered spontaneously and complete. Manual exploration of the uterus revealed no membranes left behind. Cervix, vagina, and vulva were free of hemato ma. The position was direct occiput anterior. There were 3 vessels in the cord. The placenta was n ormal with a small shiny side and a pinkish maternal side. The midline episiotomy was repaired in layers using 2-0 chromic with 1% Xylocaine. The patient tolerated the delivery well. Estimated blood loss was about 400. Vital signs were stable during and after the delivery. Dictated By: ZAHIRA ESCOBAR/JAVIER Conf#: [id number] DID#: [id number]
== END 2019-01-03 17:35 | disposition home or self-care (01) | DRG 805 ==
LOC: OBT 17:24 → L-D 17:24 → OBT 21:17 → L-D 12-28 01:15 → PP1 01-01 18:04
PROVIDERS: ADMIT Obstetrics & Gynecology; ATTEND Obstetrics & Gynecology
PROC: 10E0XZZ Delivery of Products of Conception, External Approach (ICD-10-PCS; principal; 2019-01-01)
PROC: 0W8NXZZ Division of Female Perineum, External Approach (ICD-10-PCS; 2019-01-01)
DX: O60.14X0 Preterm labor third trimester with preterm delivery third trimester, not applicable or unspecified (principal); K83.1 Obstruction of bile duct; Z37.0 Single live birth; O26.62 Liver and biliary tract disorders in childbirth; O14.14 Severe pre-eclampsia complicating childbirth; O76 Abnormality in fetal heart rate and rhythm complicating labor and delivery; Z3A.35 35 weeks gestation of pregnancy
CPT/HCPCS: 36415; 36600; 62319; 76705; 76815; 76816; 76817; 76818; 80053; 80076; 81003; 82803; 83735; 83789; 84112; 84156; 84560; 85025; 85610; 85730; 86592; 86850; 86900; 86901; 87086; 87340; 88307; 90716; 99464; G0463; J0290; J0595; J1100; J1200; J2590; J3010; J3475; J7120